=== PATIENT | male | born 1965 | race Caucasian/White ===

== ENCOUNTER 2016-11-23 11:31 | Emergency (ER) | payer SELFPAY ==
[~2016-11-23] VITALS: Ht 177.8 cm; Wt 91.8 kg
[2016-11-23 11:36] VITALS: TEMP 98.6
[2016-11-23] MEDS ORDERED: B-12 100 MCG PO (11:41)
[2016-11-23 12:35] LABS: BASO % 0.3 % (0.0-2.0); EOS # 0.2 (0.0-0.7); EOS % 1.2 % (0-4.0); GRAN # 10.1 (1.4-6.5); GRAN % 73.6 % (42.2-75.2); HEMATOCRIT 38.3 % (42.0-52.0); LYMPH # 2.3 (1.2-3.4); LYMPH % 16.4 % (20.0-51.0); MEAN CELL VOLUME 93 fl (80.0-100.0); MEAN CORPUSCULAR HEMOGLOBIN 32 pg (27.0-31.0); MEAN CORPUSCULAR HGB CONC 34 g/dl (33.0-37.0); MEAN PLATELET VOLUME 8.4 fl (7.4-10.4); MONO # 1.1 (0.1-0.6); MONO % 7.6 % (1.7-9.3); PLATELET COUNT 196 K/mm3 (130-400); RED BLOOD COUNT 4.11 M/mm3 (4.20-5.60); REDCELL DISTRIBUTION WIDTH-CV 13.8 % (11.5-14.5); WHITE BLOOD COUNT 13.8 K/mm3 (4.8-10.8)
[2016-11-23 12:44] LABS: PH 6 (5-8); SQUAMOUS EPITHELIAL None Seen /hpf; URINE APPEARANCE Cloudy; URINE BACTERIA Rare /hpf; URINE BILIRUBIN Negative (NEGATIVE); URINE BLOOD Negative (NEGATIVE); URINE GLUCOSE Negative (NEGATIVE); URINE KETONE Negative (NEGATIVE); URINE RBC 0-2 /hpf; URINE UROBILINOGEN Negative (NEGATIVE)
[2016-11-23 12:45] LABS: URINE COLOR Yellow
[2016-11-23 12:51] LABS: ADJUSTED CALCIUM 9.5 mg/dL (8.4-10.2); ALBUMIN 4.2 gm/dL (3.5-5.0); BILIRUBIN,TOTAL 0.6 mg/dL (0.0-1.0); CALCIUM 9.7 mg/dL (8.4-10.2); CREATININE, serum 0.8 mg/dL (0.66-1.25); TOTAL PROTEIN 7.5 gm/dL (6.4-8.2)
[2016-11-23 12:56] LABS: AMPHETAMINE URINE NEGATIVE; BARBITURATES URINE NEGATIVE; BENZODIAZEPINES URINE NEGATIVE; BUPRENORPHINE URINE NEGATIVE; METHADONE URINE NEGATIVE; OPIATES URINE NEGATIVE; OXYCODONE URINE NEGATIVE; PHENCYCLIDINE URINE NEGATIVE; PROPOXYPHENE URINE NEGATIVE; THC CANNABINOIDS URINE NEGATIVE
[2016-11-23] MEDS ORDERED: FOLIC ACID 11 MG/TA1 PO (14:06)
[2016-11-23] MEDS ORDERED: B COMPLEX & B121 TAB PO (14:06)
[2016-11-23 14:15] VITALS: BP 134/87; PULSE 94
== END 2016-11-23 14:22 | disposition home or self-care (01) ==
LOC: COL.ER 11:31
PROVIDERS: Emergency Medicine
DX: T41.0X1A Poisoning by inhaled anesthetics, accidental (unintentional), initial encounter (principal)
CPT/HCPCS: J3420; J7030